=== PATIENT | male | born 1960 | race African-American/Black ===

== ENCOUNTER 2021-10-08 21:34 | Emergency (ER) | payer OTHER ==
[2021-10-09 00:05] LABS: HEMOGLOBIN 14.1 gm/dl (14.0-17.5); RED BLOOD COUNT 4.64 M/UL (4.20-5.50); WHITE BLOOD COUNT 7.3 K/UL (4.5-11.0)
[2021-10-09 00:32] LABS: BUN/CREATININE RATIO 12 (0-10)
[2021-10-09] MEDS ORDERED: PREDNISONE 50 M50 MG PO (00:48)
[2021-10-09] MEDS ORDERED: IPRAT-ALBUT 0.5-3 ML INH (00:48)
== END 2021-10-09 01:15 | disposition home or self-care (01) ==
LOC: ER1 21:34
PROVIDERS: Emergency Medicine
DX: J44.1 Chronic obstructive pulmonary disease with (acute) exacerbation (principal); E11.9 Type 2 diabetes mellitus without complications
CPT/HCPCS: 71045; 80048; 84484; 85025; 93005; 94640; 94664; 96374; 99285; J2930